=== PATIENT | male | born 1960 | race Caucasian/White ===

== ENCOUNTER 2017-06-13 07:39 | Inpatient (IN) | payer OTHER ==
[~2017-06-13] VITALS: Ht 195.6 cm; Wt 152.5 kg
[2017-06-13] MEDS ORDERED: ASMANEX TW110 MCG/Ac IH (08:30)
[2017-06-13] MEDS ORDERED: LIPI20 PO (08:30)
[2017-06-13] MEDS ORDERED: GLIPIZIDE10 M2 PO (08:31)
[2017-06-13 08:32] LABS: BASOPHIL % 0.5 % (0-2); PLATELET COUNT 284 x10^3mcL (130-400); RED CELL DISTRIBUTION WIDTH 13.1 % (11.5-14.5)
[2017-06-13] MEDS ORDERED: ATROVENT H0.017 MG/1 IH (08:32)
[2017-06-13] MEDS ORDERED: HUMULIN R100 U/1 M1 IJ (08:32)
[2017-06-13] MEDS ORDERED: LANTUS SOLOS100 U/M1 SC (08:33)
[2017-06-13] MEDS ORDERED: NAPROSYN500 MG PO (08:33)
[2017-06-13] MEDS ORDERED: ZESTRIL5 MG PO (08:33)
[2017-06-13] MEDS ORDERED: SELENIUM SULFI120 M1 TP (08:34)
[2017-06-13] MEDS ORDERED: IMITREX50 MG PO (08:35)
[2017-06-13 08:49] LABS: CALCIUM 9.3 mg/dL (8.5-10.1); CHLORIDE SERUM 101 mmol/L (98-107); CREATININE SERUM 1.1 mg/dL (0.7-1.3); GFR1 > 60 mL/min; GLUCOSE SERUM 245 mg/dL (74-106); POTASSIUM SERUM 4.3 mmol/L (3.5-5.1); SODIUM SERUM 136 mmol/L (136-145)
[2017-06-13 08:54] LABS: ALBUMIN 4.5 g/dL (3.4-5.0); ALKALINE PHOSPHATASE 133 U/L (46-116); ALT/SGPT 47 U/L (16-63); AST/SGOT 52 U/L (15-37); BILIRUBIN TOTAL 1.4 mg/dL (0.20-1.00); TOTAL PROTEIN, SERUM 7.7 g/dL (6.4-8.2)
[2017-06-13 11:06] VITALS: BP 121/76
[2017-06-13 13:26] LABS: CALCIUM 8.9 mg/dL (8.5-10.1); CARBON DIOXIDE 23.5 mmol/L (21-32); CHLORIDE SERUM 103 mmol/L (98-107); GFR1 > 60 mL/min; GLUCOSE SERUM 146 mg/dL (74-106); POTASSIUM SERUM 4.2 mmol/L (3.5-5.1); SODIUM SERUM 133 mmol/L (136-145)
[2017-06-13 13:32] LABS: MAGNESIUM 2.2 mg/dL (1.8-2.4)
[2017-06-13 13:34] LABS: CHOLESTEROL/HDL RATIO 4.3
[2017-06-13 15:59] LABS: FREE T4 1.38 ng/dL (0.76-1.46)
[2017-06-13 17:09] VITALS: BP 107/66
[2017-06-13 20:21] LABS: AMPHETAMINE QUAL UR NONE DETECTED (NEG <=1000)
[2017-06-13 20:38] LABS: UA SPECIFIC GRAVITY 1.025 (1.005-1.035); microscopic required? YES; urine erythrocyte NEGATIVE (NEGATIVE)
[2017-06-13 20:52] VITALS: BP 125/72
[2017-06-14 05:37] VITALS: BP 128/73
[2017-06-14 06:10] LABS: CALCIUM 8.8 mg/dL (8.5-10.1); CARBON DIOXIDE 26.6 mmol/L (21-32); CHLORIDE SERUM 103 mmol/L (98-107); CREATININE SERUM 0.9 mg/dL (0.7-1.3); GFR1 > 60 mL/min; GLUCOSE SERUM 123 mg/dL (74-106); POTASSIUM SERUM 3.9 mmol/L (3.5-5.1); SODIUM SERUM 137 mmol/L (136-145)
[2017-06-14 06:40] LABS: PLATELET COUNT 216 x10^3mcL (130-400); RED CELL DISTRIBUTION WIDTH 13.1 % (11.5-14.5)
[2017-06-14 10:00] VITALS: BP 123/84
[2017-06-14 10:48] VITALS: BP 123/84
[2017-06-14 15:11] VITALS: BP 123/84
[2017-06-14 15:36] VITALS: BP 125/76
[2017-06-14 17:04] VITALS: BP 132/79
== END 2017-06-14 19:35 | disposition other institution (70) | DRG 310 ==
LOC: ED 07:39 → DU 09:55
PROVIDERS: Emergency Medicine Emergency Medical Services; ADMIT Internal Medicine
DX: I47.1 Supraventricular tachycardia (principal); E11.9 Type 2 diabetes mellitus without complications; I10 Essential (primary) hypertension; I25.10 Atherosclerotic heart disease of native coronary artery without angina pectoris; J44.9 Chronic obstructive pulmonary disease, unspecified; Z79.4 Long term (current) use of insulin; Z79.84 Long term (current) use of oral hypoglycemic drugs; Z79.899 Other long term (current) drug therapy; I25.2 Old myocardial infarction; Z87.891 Personal history of nicotine dependence
CPT/HCPCS: 82962; 84439; J0153; J1815; J3490; J7644; Q0092